=== PATIENT | female | born 1980 | race Asian ===

== ENCOUNTER 2025-03-12 16:04 | Emergency (ER) | payer BC ==
[2025-03-12 16:16] VITALS: BMI 28.3
[2025-03-12 16:24] VITALS: TEMP 98.8
[2025-03-12 18:05] LABS: ABSOLUTE IMMATURE GRANULOCYTES 0.04 x10^3/uL (0.0-0.031); BASOPHILS # 0.06 x10^3/uL (0.01-0.08); EOSINOPHIL % 1.3 % (0.7-5.8); EOSINOPHILS # 0.15 x10^3/uL (0.04-0.36); MCHC 32.2 g/dl (32.2-35.5); MEAN CELL VOLUME 83.3 fl (79.4-94.8); MEAN PLT VOLUME 10.0 fl (9.4-12.3); MONOCYTE # 0.69 x10^3/uL (0.24-0.86); MONOCYTE % 6.2 % (4.7-12.5); RDW 13.2 % (12.2-17.1)
[2025-03-12 18:25] LABS: CO2 25.0 mmol/L (21-32); GLUCOSE,RANDOM 103.0 mg/dL (74-106)
[2025-03-12 18:28] LABS: CREATININE 0.5 mg/dL (0.55-1.3); SGPT/ALT 28.0 U/L (13-61)
[2025-03-12 18:29] LABS: SGOT/AST 10.0 U/L (15-37)
[2025-03-12 18:30] LABS: TOT PROT 6.8 g/dl (6.4-8.2)
[2025-03-12 18:31] LABS: ALK PHOS 66.0 U/L (45-117)
[2025-03-12 19:30] LABS: HCV DIAGNOSTIC IN-HOUSE W/RFLX NON-REACTIVE (NONREACTIVE); HIV INTERPRETATION NEGATIVE (NEGATIVE)
[2025-03-12 19:40] VITALS: BP 125/74; PULSE 83; RESP 19
== END 2025-03-12 19:20 | disposition home or self-care (01) ==
LOC: JER 16:04
DX: R00.2 Palpitations (principal); R06.02 Shortness of breath; R42 Dizziness and giddiness; R55 Syncope and collapse; K59.00 Constipation, unspecified
CPT/HCPCS: 36415; 71045-TC-FY; 80053; 83735; 84443; 84484; 84703; 85025; 86803; 87389; 93005; 93010; 99285-25